=== PATIENT | male | born 1965 | race Two or more races ===

== ENCOUNTER 2021-04-27 09:37 | Outpatient (CLI) | payer BC | END 2021-04-27 23:59 | disposition home or self-care (01) | LOC: MSC 09:37 | PROVIDERS: ATTEND Internal Medicine | DX: Z00.00 Encounter for general adult medical examination without abnormal findings (principal); E66.9 Obesity, unspecified; Z68.31 Body mass index [BMI] 31.0-31.9, adult; Z71.3 Dietary counseling and surveillance; B07.8 Other viral warts; R51.9 Headache, unspecified; G51.0 Bell's palsy ==

== ENCOUNTER → 2021-06-07 | Outpatient (CLI) | payer BC | END | disposition home or self-care (01) | LOC: MSC 13:00 | PROVIDERS: ATTEND Internal Medicine | DX: E78.5 Hyperlipidemia, unspecified (principal); L98.9 Disorder of the skin and subcutaneous tissue, unspecified; E66.9 Obesity, unspecified; Z71.3 Dietary counseling and surveillance; B07.9 Viral wart, unspecified; R51.9 Headache, unspecified; G51.0 Bell's palsy; Z79.52 Long term (current) use of systemic steroids ==